=== PATIENT | male | born 1965 | race African-American/Black ===

== ENCOUNTER 2019-10-08 17:03 | Inpatient (IN) | payer OTHER ==
[2019-10-08 19:08] VITALS: BMI 22.9
--- NOTE | 2019-10-08 20:27 | HP ---
COWS - Scale Resting Pulse: 0= [place] 80 or Below Sweatin= Chills/Flushing Restless Observation: 1= Difficult to Sit Still Pupil Size: 0= Normal to Room Light Bone or Joint Aches: 4=Acute Joint/Muscle Pain Runny Nose/ Eye Tearin= None GI Upset > 30mins: 2= Nausea/Diarrhea Tremor Observation: 0= None Yawning Observation: 0= None Anxiety or Irritability: 2=Irritable/Anxious Goose Flesh Skin: 0=Smooth Skin COWS Score: 10 CIWA Score Nausea/Vomitin-Mild Nausea/No Vomiting Muscle Tremors: None Anxiety: 4-Mod. Anxious/Guarded Agitation: 4-Moderately Restless Paroxysmal Sweats: 3 Orientation: 0-Oriented Tacttile Disturbances: 2-Mild Itch/Numbness/Burn Auditory Disturbances: 0-None Visual Disturbances: 0-None Headache: 0-None Present CIWA-Ar Total Score: 14 - Admission Criteria OASAS Guidelines: Admission for Medically Managed Detox: Requires at least one of the followin. CIWA greater than 12 2. Seizures within the past 24 hours 3. Delirium tremens within the past 24 hours 4. Hallucinations within the past 24 hours 5. Acute intervention needed for co occurring medical disorder 6. Acute intervention needed for co occurring psychiatric disorder 7. Severe withdrawal that cannot be handled at a lower level of care (continued vomiting, continued diarrhea, abnormal vital signs) requiring intravenous medication and/or fluids 8. Patient presents the following: CIWA greater than 12 Admission Criteria Met: Admission criteria met Admission ROS [facility] Chief Complaint: seeking alcohol and heroin detox Allergies/Adverse Reactions: Allergies Allergy/AdvReac Type Severity Reaction Status Date / Time No Known Allergies Allergy Verified 10/08/19 18:59 History of Present Illness: HERE FOR ALCOHOL/HEROIN DETOX. CLIENT IS REFERRED BY [facility] AFTER BEING TREATED THERE FOR. ACUTE BACK PAIN . HE ALSO REPORTS THAT HE ATTENDS AN OUTPATIENT PROGRAM [facility]. REPORTS HX/OF [facility] PROGRAM BUT HAS NOT BEEN THERE IN A WHILE HE IS NO LONGER A PTIENT THERE. UTOX NEG FOR OPIATES. HE REPORTS DAILY ALCOHOL AND HEROIN ABUSE. LAST USE OF BOTH SUBSTANCES 2 DAYS. CLIENT DENIES IVDU, . 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 DENIES HX/O SEIZURES. LONGEST CLEAN TIME 3 YEARS. DENIES ANY SIGNIFICANT PERIOD OF CLEAN TIME THIS PAST YEAR. LIVES WITH FAMILY, EMPLOYED, PENDING COURT CASE. SEEKING REHAB AFTER DETOX. Exam Limitations: No Limitations - Ebola screening Have you traveled outside of the country in the last 21 days: No Have you had contact with anyone from an Ebola affected area: No Do you have a fever: No - Review of Systems Constitutional: Chills, Malaise, Night Sweats, Changes in sleep EENT: reports: Dental Problems (MISSING TEETH) Respiratory: reports: No Symptoms reported Cardiac: reports: No Symptoms Reported GI: reports: Nausea, Poor Appetite : reports: No Symptoms Reported Musculoskeletal: reports: Back Pain, Neck Pain Neuro: reports: Other (RIGHT MIDDLE FINGER HANG NAILS) Endocrine: reports: No Symptoms Reported Hematology: reports: No Symptoms Reported Psychiatric: reports: Orientated x3, Anxious, Depressed Other Systems: Reviewed and Negative Patient History - Patient Medical History Hx Anemia: No Hx Asthma: No Hx Chronic Obstructive Pulmonary Disease (COPD): No Hx Cancer: No Hx Cardiac Disorders: No Hx Congestive Heart Failure: No Hx Hypertension: No Hx Hypercholesterolemia: No Hx Pacemaker: No HX Cerebrovascular Accident: No Hx Seizures: No Hx Dementia: No Hx Diabetes: No Hx Gastrointestinal Disorders: No Hx Liver Disease: No Hx Genitourinary Disorders: No Hx Sexually Transmitted Disorders: No Hx Renal Disease (ESRD): No Hx Thyroid Disease: No Hx Human Immunodeficiency Virus (HIV): No Hx Hepatitis C: No Hx Depression: Yes Hx Suicide Attempt: No Hx Bipolar Disorder: No Hx Schizophrenia: No Other Medical History: DENIES - Patient Surgical History Past Surgical History: No - PPD History Previous Implant?: Yes Documented Results: Positive w/o proof (EXPOSED IN 1987 TOOK INH) Implanted On Prior [facility] Admission?: No PPD to be Administered?: No - Smoking Cessation Smoking history: Current every day smoker Have you smoked in the past 12 months: Yes Aproximately how many cigarettes per day: 10 Cigars Per Day: 1 Hx Chewing Tobacco Use: No Initiated information on smoking cessation: Yes 'Breaking Loose' booklet given: 10/08/19 - Substance & Tx. History Hx Alcohol Use: Yes Hx Substance Use: Yes Substance Use Type: Alcohol, Cocaine, Heroin Hx Substance Use Treatment: Yes (DOES NOT RECALL) - Substances abused Alcohol Substance route: Oral Frequency: Daily Amount used: liquor- 1 quart, beer-1 six pack Age of first use: 9 Date of last use: 10/07/19 Heroin Substance route: Inhalation Frequency: Daily Amount used: 10 Age of first use: 22 Date of last use: 10/06/19 Crack Substance route: Smoking Frequency: Daily Amount used: 3GM Age of first use: 22 Date of last use: 10/06/19 Admission Physical Exam [facility] - Vital Signs Vital Signs: Vital Signs - 24 hr 10/08/19 18:59 Temperature 97 F L Pulse Rate 73 Respiratory 18 Rate Blood Pressure 131/66 - Physical General Appearance: Yes: Mild Distress, Anxious HEENTM: Yes: EOMI, Normocephalic, Normal Voice, AMERICO, Other (DRY MUCUS MEMBRANES ) Respiratory: Yes: Chest Non-Tender, Lungs Clear, Normal Breath Sounds, No Respiratory Distress, No Accessory Muscle Use Neck: Yes: No masses,lesions,Nodules, Supple, Trachea in good position Breast: Yes: Breast Exam Deferred Cardiology: Yes: Regular Rhythm, Regular Rate, S1, S2 Abdominal: Yes: Non Tender, Soft, Increased Bowel Sounds Genitourinary: Yes: Within Normal Limits Back: Yes: Normal Inspection Musculoskeletal: Yes: full range of Motion, Gait Steady, Back pain (C/O) Extremities: Yes: Normal Range of Motion, Non-Tender Neurological: Yes: Alert, Motor Strength 5/5, Confused (SEEMS FORGETFUL), Depressed Affect Integumentary: Yes: Dry, Warm, Other (RIGHT MIDDLE FINGER INJURY WITH SKIN TEARS ) Lymphatic: Yes: Within Normal Limits - Diagnostic (1) Alcohol dependence with withdrawal, uncomplicated Current Visit: Yes Status: Acute (2) Opioid dependence with withdrawal Current Visit: Yes Status: Acute (3) Cocaine dependence, uncomplicated Current Visit: Yes Status: Acute (4) Depressed affect Current Visit: Yes Status: Acute (5) At risk for dehydration due to poor fluid intake Current Visit: Yes Status: Acute (6) Dry mucous membranes Current Visit: Yes Status: Acute (7) Abrasion of right middle finger Current Visit: Yes Status: Acute Qualifiers: Encounter type: sequela Qualified Code(s): S60.412S - Abrasion of right middle finger, sequela Cleared for Admission [facility] - Detox or Rehab [facility] Level of Care: Medically Managed Detox Regimen/Protocol: Methadone/Librium Claeared for Rehab Admission: No Breathalyzer - Breathalyzer Breathalyzer: 0 Urine Drug Screen - Test Device Lot number: [id number] Expiration date: 04/27/21 - Control Is test valid?: Yes - Results Drug screen NEGATIVE: No Urine drug screen results: MERCEDES-Cocaine, FEN-Fentanyl, MOP-Opiates, BZO- Benzodiazepines Inpatient Rehab Admission - Rehab Decision to Admit Inpatient rehab admission?: No
[2019-10-08] MEDS ORDERED: ACETAMINOPHEN 325 MG TABLET (FP) PO PRN ×2 (20:32)
[2019-10-08] MEDS ORDERED: MAGNESIUM HYDROX 2400MG/30ML ORAL SUSPENSION 30 ML CUP PO PRN (20:32)
[2019-10-08] MEDS ORDERED: BISMUTH SUBSALICYLATE 524 MG/30 ML UD PO PRN (20:32)
[2019-10-08] MEDS ORDERED: MAG HYDROX/AL HYDROX/SIMETH 30 ML UNIT-DOSE CUP PO PRN (20:32)
[2019-10-08] MEDS ORDERED: guaiFENesin 200 MG/10 ML 10 ML UNIT-DOSE CUPS PO PRN (20:32)
[2019-10-08] MEDS ORDERED: METHOCARBAMOL 500 MG TABLET PO PRN (20:32)
[2019-10-08] MEDS ORDERED: METHADONE HCL 10 MG TABLET (FOR DETOX USE ONLY) PO ONE ×2 (20:32→21:20)
[2019-10-08] MEDS ORDERED: cloNIDine HCL 0.1 MG TABLET PO PRN (20:32)
[2019-10-08] MEDS ORDERED: chlordiazePOXIDE HCL 10 MG CAPSULE PO PRN (20:32)
[2019-10-08] MEDS ORDERED: MENTHOL/PHENOL 1 EACH UD MM PRN (20:32)
[2019-10-08] MEDS ORDERED: DICYCLOMINE HCL 10 MG CAPSULE PO PRN (20:32)
[2019-10-08] MEDS ORDERED: P-EPHED 60MG/TRIPROLIDI 2.5MG TABLET PO PRN (20:32)
[2019-10-08] MEDS ORDERED: MAGNESIUM CITRATE 300 ML BOTTLE PO PRN (20:32)
[2019-10-08] MEDS ORDERED: hydrOXYzine PAMOATE 25 MG CAPSULE (FP) PO PRN (20:32)
[2019-10-08] MEDS ORDERED: MELATONIN 5 MG TABLETS PO PRN (20:32)
[2019-10-08] MEDS ORDERED: IBUPROFEN 400 MG TABLET (FP) PO PRN (20:32)
[2019-10-08] MEDS ORDERED: NICOTINE POLACRILEX 2 MG GUM BUC PRN (20:32)
[2019-10-08] MEDS ORDERED: ONDANSETRON *ODT* 4 MG TABLET SL PRN (20:32)
[2019-10-08] MEDS: chlordiazePOXIDE HCL 25 MG CAPSULE PO SCH (22:58)
[2019-10-08] MEDS: THIAMINE HCL 100 MG TABLET (FP) PO SCH (22:58)
[2019-10-08] MEDS: BACITRACIN 0.9 GM PACKET TP SCH (23:03)
[2019-10-09] MEDS: chlordiazePOXIDE HCL 25 MG CAPSULE PO SCH ×3 (05:23→23:10)
--- NOTE | 2019-10-09 09:01 | EKG ---
Test Reason : Blood Pressure : / mmHG Vent. Rate : 066 BPM Atrial Rate : 066 BPM P-R Int : 134 ms QRS Dur : 080 ms QT Int : 378 ms P-R-T Axes : 069 -04 050 degrees QTc Int : 396 ms NORMAL SINUS RHYTHM NORMAL ECG NO PREVIOUS ECGS AVAILABLE Confirmed by LIZETH PATRICK MD ([id number]) on 10/09/2019 9:00:55 AM Referred By: Confirmed By:LIZETH PATRICK MD
[2019-10-09 09:53] LABS: HEMATOCRIT 36.9 % (35.4-49); MCH 29.5 pg (25.7-33.7); MCHC 32.6 g/dl (32.0-35.9); MEAN CELL VOLUME 90.6 fl (80-96); MEAN PLT VOLUME 8.4 fl (7.5-11.1); PLATELET COUNT 240 K/MM3 (134-434); RBC 4.07 M/mm3 (4.00-5.60); RDW 13.5 % (11.9-15.9); WHITE BLOOD COUNT 4.5 K/mm3 (4.0-10.0)
[2019-10-09] MEDS ORDERED: METHADONE HCL 5 MG TABLET (FOR DETOX USE ONLY) PO ONE (10:00)
[2019-10-09 10:03] LABS: BILIRUBIN,TOTAL 0.6 mg/dL (0.2-1); BLOOD UREA NITROGEN 21.6 mg/dL (7-18); CALCIUM 8.2 mg/dL (8.5-10.1); CREATININE 0.9 mg/dL (0.55-1.3); POTASSIUM 4.1 mmol/L (3.5-5.1); TOT PROT 6.6 g/dl (6.4-8.2)
[2019-10-09] MEDS: NICOTINE 14 MG/24 HOURS TOPICAL PATCH TD SCH (10:30)
[2019-10-09] MEDS: PRENATAL VITAMINS W/ FOLIC ACID TABLET (FP) PO SCH (11:00)
[2019-10-09] MEDS: BACITRACIN 0.9 GM PACKET TP SCH (11:00)
--- NOTE | 2019-10-09 11:53 | PN ---
[facility] CIWA - CIWA Score Nausea/Vomitin-No Nausea/No Vomiting Muscle Tremors: 2 Anxiety: 1-Mildly Anxious Agitation: 4-Moderately Restless Paroxysmal Sweats: 1-Minimal Palms Moist Orientation: 0-Oriented Tacttile Disturbances: 0-None Auditory Disturbances: 0-None Visual Disturbances: 0-None Headache: 0-None Present CIWA-Ar Total Score: 8 [facility] COWS - Scale Resting Pulse: 0= [place] 80 or Below Sweatin= Chills/Flushing Restless Observation: 1= Difficult to Sit Still Pupil Size: 0= Normal to Room Light Bone or Joint Aches: 2= Severe Diffuse Aches Runny Nose/ Eye Tearin= None GI Upset > 30mins: 0= None Tremor Observation of Outstretched Hands: 0= None Yawning Observation: 1= 1-2x During Session Anxiety or Irritability: 2=Irritable/Anxious Goose Flesh Skin: 0=Smooth Skin COWS Score: 7 [facility] Progress Note (SOAP) Subjective: Sweats, restless and interrupted sleep Objective: 10/09/19 11:53 Vital Signs Temperature 96.9 F L 10/09/19 09:25 Pulse Rate 66 10/09/19 09:25 Respiratory Rate 18 10/09/19 09:25 Blood Pressure 122/59 L 10/09/19 09:25 O2 Sat by Pulse Oximetry (%) Laboratory Tests 10/09/19 10/09/19 10/09/19 07:15 07:15 07:15 WBC 4.5 RBC 4.07 Hgb 12.0 Hct 36.9 MCV 90.6 MCH 29.5 MCHC 32.6 RDW 13.5 Plt Count 240 MPV 8.4 Sodium 139 Potassium 4.1 Chloride 104 Carbon Dioxide 32 Anion Gap 3 L BUN 21.6 H Creatinine 0.9 Est GFR (CKD-EPI)AfAm 113.41 Est GFR (CKD-EPI)NonAf 97.85 Random Glucose 104 Calcium 8.2 L Total Bilirubin 0.6 AST 28 ALT 29 Alkaline Phosphatase 77 Total Protein 6.6 Albumin 3.0 L RPR Titer Nonreactive 10/09/19 11:54 Aaox3 Ambulating Vital signs are stable Withdrawal symptoms present Assessment: 10/09/19 11:53 Continue detox
--- NOTE | 2019-10-09 17:48 | CONSULT ---
[facility] Psychiatric Consult - Data Date of interview: 10/09/19 Admission source: [facility] Identifying data: First visit at [facility] and admission to [address] [place] [address] for this 54 y/o AA male self-referred for detoxification treatment. NEMO issues : alcohol, crack/cocaine, heroin, nicotine. Patient is , father of three, domiciled and currently employed. Substance Abuse History: Discussed with [facility] patient. Details in current [facility] report as follows : Smoking history: Current every day smoker. Have you smoked in the past 12 months: Yes. Aproximately how many cigarettes per day: 10. Cigars Per Day: 1. Hx Chewing Tobacco Use: No. Initiated information on smoking cessation: Yes. 'Breaking Loose' booklet given: 10/08/19. - Substance & Tx. History. Hx Alcohol Use: Yes. Hx Substance Use: Yes. Substance Use Type : Alcohol, Cocaine, Heroin. Hx Substance Use Treatment: Yes (DOES NOT RECALL). - Substances abused. Alcohol. Substance route: Oral. Frequency: Daily. Amount used: liquor- 1 quart, beer-1 six pack. Age of first use: 9. Date of last use: 10/07/19. Heroin. Substance route: Inhalation. Frequency: Daily. Amount used: 10. Age of first use: 22. Date of last use: 10/06/19. * * Crack. Substance route: Smoking. Frequency: Daily. Amount used: 3GM. Age of first use: 22. Date of last use: 10/06/19 Medical History: Patient endorses good general health. Psychiatric History: Patient denies history of psychiatric hospitalizations, OPD care or suicide attempts. Physical/Sexual Abuse/Trauma History: Patient denies. Additional Comment: Urine drug screen results: MERCEDES-Cocaine, FEN-Fentanyl, MOP- Opiates, BZO-Benzodiazepines. Noted. Mental Status Exam - Mental Status Exam Alert and Oriented to: Time, Place, Person Cognitive Function: Good Patient Appearance: Well Groomed Mood: Hopeful Affect: Appropriate, Normal Range Patient Behavior: Fatigued, Appropriate (friendly), Cooperative Speech Pattern: Clear, Appropriate Voice Loudness: Normal Thought Process: Intact, Goal Oriented Thought Disorder: Not Present Hallucinations: Denies Suicidal Ideation: Denies Homicidal Ideation: Denies Insight/Judgement: Poor Sleep: Well Appetite: Good Gait/Station: Normal Psychiatric Findings - Problem List ([place] 1, 2,3) (1) Alcohol dependence with withdrawal, uncomplicated Current Visit: Yes Status: Acute (2) Opioid dependence with withdrawal Current Visit: Yes Status: Acute (3) Cocaine dependence, uncomplicated Current Visit: Yes Status: Chronic (4) Nicotine dependence Current Visit: Yes Status: Chronic - Initial Treatment Plan Initial Treatment Plan: Psychoeducation. Sleep hygiene. Detoxification. Support. MAT services explained to patient. AA/NA meetings. Observation.
[2019-10-09] MEDS: THIAMINE HCL 100 MG TABLET (FP) PO SCH (23:10)
[2019-10-10] MEDS: chlordiazePOXIDE 5 MG CAPSULE PO SCH ×2 (06:57→14:00)
[2019-10-10] MEDS ORDERED: METHADONE HCL 10 MG TABLET (FOR DETOX USE ONLY) PO ONE (10:00)
[2019-10-10] MEDS: PRENATAL VITAMINS W/ FOLIC ACID TABLET (FP) PO SCH (11:00)
[2019-10-10] MEDS: BACITRACIN 0.9 GM PACKET TP SCH (11:01)
[2019-10-10] MEDS: NICOTINE 14 MG/24 HOURS TOPICAL PATCH TD SCH (11:09)
--- NOTE | 2019-10-10 11:31 | PN ---
[facility] CIWA - CIWA Score Nausea/Vomitin-No Nausea/No Vomiting Muscle Tremors: 2 Anxiety: 1-Mildly Anxious Agitation: 1-Slight > Activity Paroxysmal Sweats: 2 Orientation: 0-Oriented Tacttile Disturbances: 0-None Auditory Disturbances: 0-None Visual Disturbances: 0-None Headache: 0-None Present CIWA-Ar Total Score: 6 S COWS - Scale Resting Pulse: 0= [place] 80 or Below Sweatin= Chills/Flushing Restless Observation: 0= Sits Still Pupil Size: 0= Normal to Room Light Bone or Joint Aches: 1= Mild Discomfort Runny Nose/ Eye Tearin= None GI Upset > 30mins: 1= Stomach Cramp Tremor Observation of Outstretched Hands: 2= Slight Tremor Visible Yawning Observation: 0= None Anxiety or Irritability: 1=Feels Anxious/Irritable Goose Flesh Skin: 0=Smooth Skin COWS Score: 6 [facility] Progress Note (SOAP) Subjective: Sweating, chills, interrupted sleep Objective: 10/10/19 11:27 Last Vital Signs Temp Pulse Resp BP Pulse Ox 98.1 F 61 18 124/62 10/10/19 09:21 10/10/19 09:21 10/10/19 09:21 10/10/19 09:21 Laboratory Tests 10/09/19 10/09/19 10/09/19 07:15 07:15 07:15 WBC 4.5 RBC 4.07 Hgb 12.0 Hct 36.9 MCV 90.6 MCH 29.5 MCHC 32.6 RDW 13.5 Plt Count 240 MPV 8.4 Sodium 139 Potassium 4.1 Chloride 104 Carbon Dioxide 32 Anion Gap 3 L BUN 21.6 H Creatinine 0.9 Est GFR (CKD-EPI)AfAm 113.41 Est GFR (CKD-EPI)NonAf 97.85 Random Glucose 104 Calcium 8.2 L Total Bilirubin 0.6 AST 28 ALT 29 Alkaline Phosphatase 77 Total Protein 6.6 Albumin 3.0 L RPR Titer Nonreactive Labs reviewed: bun 21.6 (elevated), calcium 8.2 (low), albumin (low) Assessment: 10/10/19 11:29 Withdrawal sxs Noted with azotemia, mild hypocalcemia and hypoalbuminemia Plan: Continue detox Encouraged PO water intake Azotemia: encouraged to drink more water Hypocalcemia, mild: start calcium carbonate bid x couple of days Hypoalbuminemia: most likely due to alcoholism, encouraged diet, start Ensure 1 can PO BID
[2019-10-10] MEDS ORDERED: CALCIUM CARBONATE 650 MG TABLET PO SCH (11:45)
[2019-10-10 12:25] LABS: PH,URINE 7.5 (5.0-8.0); URINE APPEARANCE CLEAR; URINE BILIRUBIN NEGATIVE (NEGATIVE); URINE COLOR YELLOW; URINE GLUCOSE (UA) NEGATIVE (NEGATIVE); URINE KETONE NEGATIVE (NEGATIVE); URINE LEUK ESTERASE NEGATIVE (NEGATIVE); URINE NITRITE NEGATIVE (NEGATIVE); URINE PROTEIN NEGATIVE (NEGATIVE)
[2019-10-10 14:50] VITALS: BP 123/71; PULSE 65; TEMP 97.3
--- NOTE | 2019-10-10 17:56 | DS ---
[facility] Detox Discharge Summary Admission Date: 10/08/19 Discharge Date: 10/10/19 - History Pertinent Past History: Depression - Physical Exam Results Vital Signs: Vital Signs Temperature 97.3 F L 10/10/19 14:50 Pulse Rate 65 10/10/19 14:50 Respiratory Rate 18 10/10/19 14:50 Blood Pressure 123/71 10/10/19 14:50 O2 Sat by Pulse Oximetry (%) Pertinent Admission Physical Exam Findings: Withdrawal sx Laboratory Last Values WBC 4.5 K/mm3 (4.0-10.0) 10/09/19 07:15 RBC 4.07 M/mm3 (4.00-5.60) 10/09/19 07:15 Hgb 12.0 GM/dL (11.7-16.9) 10/09/19 07:15 Hct 36.9 % (35.4-49) 10/09/19 07:15 MCV 90.6 fl (80-96) 10/09/19 07:15 MCH 29.5 pg (25.7-33.7) 10/09/19 07:15 MCHC 32.6 g/dl (32.0-35.9) 10/09/19 07:15 RDW 13.5 % (11.9-15.9) 10/09/19 07:15 Plt Count 240 K/MM3 (134-434) 10/09/19 07:15 MPV 8.4 fl (7.5-11.1) 10/09/19 07:15 Sodium 139 mmol/L (136-145) 10/09/19 07:15 Potassium 4.1 mmol/L (3.5-5.1) 10/09/19 07:15 Chloride 104 mmol/L (98-107) 10/09/19 07:15 Carbon Dioxide 32 mmol/L (21-32) 10/09/19 07:15 Anion Gap 3 MMOL/L (8-16) L 10/09/19 07:15 BUN 21.6 mg/dL (7-18) H 10/09/19 07:15 Creatinine 0.9 mg/dL (0.55-1.3) 10/09/19 07:15 Est GFR (CKD-EPI)AfAm 113.41 10/09/19 07:15 Est GFR (CKD-EPI)NonAf 97.85 10/09/19 07:15 Random Glucose 104 mg/dL (74-106) 10/09/19 07:15 Calcium 8.2 mg/dL (8.5-10.1) L 10/09/19 07:15 Total Bilirubin 0.6 mg/dL (0.2-1) 10/09/19 07:15 AST 28 U/L (15-37) 10/09/19 07:15 ALT 29 U/L (13-61) 10/09/19 07:15 Alkaline Phosphatase 77 U/L (45-117) 10/09/19 07:15 Total Protein 6.6 g/dl (6.4-8.2) 10/09/19 07:15 Albumin 3.0 g/dl (3.4-5.0) L 10/09/19 07:15 Urine Color Yellow 10/10/19 Unknown Urine Appearance Clear 10/10/19 Unknown Urine pH 7.5 (5.0-8.0) 10/10/19 Unknown Ur Specific Howes 1.017 (1.010-1.035) 10/10/19 Unknown Urine Protein Negative (NEGATIVE) 10/10/19 Unknown Urine Glucose (UA) Negative (NEGATIVE) 10/10/19 Unknown Urine Ketones Negative (NEGATIVE) 10/10/19 Unknown Urine Blood Negative (NEGATIVE) 10/10/19 Unknown Urine Nitrite Negative (NEGATIVE) 10/10/19 Unknown Urine Bilirubin Negative (NEGATIVE) 10/10/19 Unknown Urine Urobilinogen 1.0 mg/dL (0.2-1.0) 10/10/19 Unknown Ur Leukocyte Esterase Negative (NEGATIVE) 10/10/19 Unknown RPR Titer Nonreactive (NONREACTIVE) 10/09/19 07:15 - Medication Discharge Medications: Ambulatory Orders Ibuprofen [Motrin -] 600 mg PO PRN 10/08/19 - Diagnosis (1) Alcohol dependence with withdrawal, uncomplicated Current Visit: Yes Status: Acute (2) Opioid dependence with withdrawal Current Visit: Yes Status: Acute (3) Cocaine dependence, uncomplicated Current Visit: Yes Status: Chronic (4) Nicotine dependence Current Visit: Yes Status: Chronic Qualifiers: Nicotine product type: cigarettes Substance use status: uncomplicated Qualified Code(s): F17.210 - Nicotine dependence, cigarettes, uncomplicated - AMA Did Patient Leave Against Medical Advice: Yes
[2019-10-11] MEDS ORDERED: chlordiazePOXIDE HCL 10 MG CAPSULE PO PRN
[2019-10-11] MEDS ORDERED: chlordiazePOXIDE HCL 10 MG CAPSULE PO SCH (05:00)
[2019-10-11] MEDS ORDERED: METHADONE HCL 5 MG TABLET (FOR DETOX USE ONLY) PO ONE (06:00)
[2019-10-12] MEDS ORDERED: chlordiazePOXIDE HCL 10 MG CAPSULE PO ONE (05:00)
== END 2019-10-10 18:34 | disposition left against medical advice (07) | DRG 770 ==
LOC: YASAS 17:03 → Y6N 21:45
PROVIDERS: ADMIT Allergy & Immunology; ATTEND Allergy & Immunology
PROC: HZ2ZZZZ Detoxification Services for Substance Abuse Treatment (ICD-10-PCS; principal; 2019-10-08)
DX: F10.230 Alcohol dependence with withdrawal, uncomplicated (principal); F11.23 Opioid dependence with withdrawal; F14.20 Cocaine dependence, uncomplicated; F17.210 Nicotine dependence, cigarettes, uncomplicated; R68.2 Dry mouth, unspecified; R45.89 Other symptoms and signs involving emotional state; R79.89 Other specified abnormal findings of blood chemistry; R77.0 Abnormality of albumin; Z91.81 History of falling
CPT/HCPCS: 36415; 80053; 81003; 85027; 86593; 93005; 93010